=== PATIENT | male | born 1985 | race Caucasian/White ===

== ENCOUNTER 2017-05-08 17:05 | Emergency (ER) | payer MEDICAID ==
[~2017-05-08] VITALS: Ht 170.2 cm; Wt 87.0 kg
[~2017-05-08 17:05] MED LIST: LORA1TAB PO
[2017-05-08 17:29] VITALS: Ht 170.2 cm; Wt 87.0 kg
[2017-05-08 21:33] LABS: BASOPHIL # 0.1 10^3/ul (0.0-0.1); BASOPHILS % 0.6 % (0.0-2.0); EOSINOPHILS # 0.4 10^3/ul (0.0-0.5); EOSINOPHILS % 4.2 % (0.0-7.0); HEMATOCRIT 47.8 % (42.0-52.0); HEMOGLOBIN 16.5 g/dl (14.0-18.0); LYMPHOCYTES # 3.5 10^3/ul (0.8-2.9); LYMPHOCYTES % 36.1 % (15.0-51.0); MEAN CORPUSCULAR HEMOGLOBIN 30.9 pg (29.0-33.0); MEAN CORPUSCULAR HGB CONC 34.5 g/dl (32.0-37.0); MEAN CORPUSCULAR VOLUME 89.5 fl (82.0-101.0); MEAN PLATELET VOLUME 10.3 fl (7.4-10.4); MONOCYTE # 0.7 10^3/ul (0.3-0.9); MONOCYTES % 7.7 % (0.0-11.0); NEUTROPHIL # 4.9 10^3/ul (1.6-7.5); PLATELET COUNT 298 10^3/UL (140-415); RED BLOOD COUNT 5.34 10^6/ul (4.70-6.10); RED CELL DISTRIBUTION WIDTH 12.8 % (11.5-14.5); WHITE BLOOD COUNT 9.7 10^3/ul (4.8-10.8)
[2017-05-08 21:49] LABS: INR 1.05; PARTIAL THROMBOPLASTIN TIME 27.2 Sec (25.0-35.0); PROTIME 13.7 Sec (12.2-14.2); PT RATIO 1.1
[2017-05-08 21:51] LABS: ANION GAP 13 (8-16); BLOOD UREA NITROGEN 19 mg/dl (7-20); CARBON DIOXIDE 29 mmol/L (21-31); CHLORIDE 106 mmol/L (97-110); CREATININE 0.97 mg/dl (0.61-1.24); GLUCOSE 93 mg/dl (70-220); POTASSIUM 4.7 mmol/L (3.5-5.1); SODIUM 143 mmol/L (135-144)
--- NOTE | 2017-05-08 21:57 | ERA ---
ER Documentation Chief Complaint Date/Time DATE: 05/08/17 TIME: 21:48 Chief Complaint HEART PALPATIONS X 1 MONTH, +MARTINEZ HPI 32-year-old male presents with a chief complaints of chest pain and heart palpitations 1-2 months. Previous records previous records show that patient has presented here before for similar symptoms with a trigger of friend recently dying and diagnosed with anxiety. Describes mild shortness of breath. Denies presyncopal/syncopal episode, dizziness, family history of cardiac disease, altered mental status, recent life stressors in the past month. Patient has seek medical care of multiple emergency departments without diagnosis. Patient has not presented to PCP. Patient also describes intermittent headache that is bilateral and tight/squeezing. Patient currently does not have a headache. Has not taken any medications for the headache. Patient has no other complaints and describes no other associated manifestations. Nursing notes and previous documents have been reviewed and are largely consistent with history given. ROS All systems reviewed and are negative except as per history of present illness. Medications Home Meds Active Scripts Lorazepam* (Lorazepam*) 1 Mg Tablet, 1 MG PO Q8, #10 TAB Prov:RAYMUNDO ROBBINS PA-C 04/10/17 Allergies Allergies: Coded Allergies: No Known Allergy (Unverified , 05/08/17) PMhx/Soc History of Surgery: Yes (R Shoulder Surg) Anesthesia Reaction: No Hx Neurological Disorder: No Hx Respiratory Disorders: No Hx Cardiac Disorders: No Hx Psychiatric Problems: No Hx Miscellaneous Medical Probl: Yes (Peptic Dse) Hx Alcohol Use: No Hx Substance Use: Yes (smokes weed) Hx Tobacco Use: Yes (2 packs/day) Smoking Status: Heavy tobacco smoker Physical Exam Vitals Vital Signs Date Time Temp Pulse Resp B/P Pulse Ox O2 Delivery O2 Flow Rate FiO2 05/08/17 21:10 63 18 116/76 99 Room Air 05/08/17 17:29 97.1 65 20 134/90 99 Physical Exam Const: Well-appearing. No acute distress. Head: Normocephalic, Atraumatic. Eyes: Non-injected; No discharge. EOMI and FREDO bilaterally. No nystagmus. Ears: Normal External Ears, EACs clear, TM normal bilaterally without erythema. Nose: Normal external nose; no discharge, or sinus tenderness. Oral: No oral edema visualized. Mucous membranes moist and pink. Neck: No cervical lymphadenopathy, or masses palpated. Supple ~ No meningismus. Pulm: Good air movement in upper and lower respiratory tracts. Clear to auscultation bilaterally. No dyspnea or stridor. Cardio: Regular rate and rhythm; No murmurs, gallops or rubs auscultated. Radial pulses 2+ bilaterally. No cyanosis noted. Capillary refill less than 2 seconds. Abd: Normal bowel sounds. Soft, non tender, non distended. MS: Normal motor strength, normal tone with gross examination. Skin: No petechiae or rashes. Good turgor. Back: No midline, flank or CVA tenderness. Ext: No edema. Normal movement of all extremities grossly observed. Neur: Neurovascularly intact bilaterally. Psych: Normal Mood and Affect. Result Diagram: 05/08/17211605/08/172116 Results 24 hrs Laboratory Tests Test 05/08/17 21:17 White Blood Count 9.710^3/ul Red Blood Count 5.3410^6/ul Hemoglobin 16.5g/dl Hematocrit 47.8% Mean Corpuscular Volume 89.5fl Mean Corpuscular Hemoglobin 30.9pg Mean Corpuscular Hemoglobin Concent 34.5g/dl Red Cell Distribution Width 12.8% Platelet Count 92488^3/UL Mean Platelet Volume 10.3fl Neutrophils % 51.0% Lymphocytes % 36.1% Monocytes % 7.7% Eosinophils % 4.2% Basophils % 0.6% Nucleated Red Blood Cells % 0.0/100WBC Neutrophils # 4.910^3/ul Lymphocytes # 3.510^3/ul Monocytes # 0.710^3/ul Eosinophils # 0.410^3/ul Basophils # 0.110^3/ul Nucleated Red Blood Cells # 0.010^3/ul Prothrombin Time 13.7Sec Prothrombin Time Ratio 1.1 INR International Normalized Ratio 1.05 Activated Partial Thromboplast Time 27.2Sec Sodium Level 143mmol/L Potassium Level 4.7mmol/L Chloride Level 106mmol/L Carbon Dioxide Level 29mmol/L Anion Gap 13 Blood Urea Nitrogen 19mg/dl Creatinine 0.97mg/dl Glucose Level 93mg/dl Calcium Level 10.0mg/dl Troponin I < 0.012ng/ml B-Type Natriuretic Peptide 18PG/ML Procedures/MDM Patient presents with a chief complaint of atypical chest pain 1-2 months and intermittent headache. No current headache. I have no suspicion for intracranial pathology including bleed, meningitis, or other life-threatening illness. EKG was obtained read by me and given the following impression: Sinus bradycardia, normal axis, no ST elevation or depression, incomplete bundle branch block, and good baseline. I reviewed the EKG with my attending who agrees with the aforementioned impression. Labs were WNL. I have little suspicion for airway endangerment, pneumonia, pulmonary embolism, ACS, dissection, or other acute cardiopulmonary pathologies. Referral to creative coordinator has been given due to recurrent episodes. Have also given the patient a list of clinics for adequate follow-up as he has not seen his PCP. Most likely diagnosis is chest pain of unknown etiology. Reviewed the case with my attending who agrees with the assessment and plan. I have spoke with the patient regarding their condition and future management. They have verbally responded that they understand their status and treatment plan. The patients vitals are stable, and their current condition is appropriate for discharge. The patient will be given discharge instructions with return precautions. Departure Diagnosis: Primary Impression: Palpitations Condition: Stable Patient Instructions: Chest Pain, Uncertain Cause Referrals: ARNULFO MARION,LENO MERINO MD,MADISON WOODWARD,SUHAS MACE,JOHNNY MOSELEY,ROLF BULLOCK,AUSTIN BRIAN,ASHLY KAISER,JEMAL BROWNE MD,MARYCHUY SALGADO,DOROTHY Duran MD FORMERLY [facility] YOU HAVE RECEIVED A MEDICAL SCREENING EXAM AND THE RESULTS INDICATE THAT YOU DO NOT HAVE A CONDITION THAT REQUIRES URGENT TREATMENT IN THE EMERGENCY DEPARTMENT. FURTHER EVALUATION AND TREATMENT OF YOUR CONDITION CAN WAIT UNTIL YOU ARE SEEN IN YOUR DOCTORS OFFICE WITHIN THE NEXT 1-2 DAYS. IT IS YOUR RESPONSIBILITY TO MAKE AN APPOINTMENT FOR FOLOW-UP CARE. IF YOU HAVE A PRIMARY DOCTOR --you should call your primary doctor and schedule an appointment IF YOU DO NOT HAVE A PRIMARY DOCTOR YOU CAN CALL OUR PHYSICIAN REFERRAL HOTLINE AT IF YOU CAN NOT AFFORD TO SEE A PHYSICIAN YOU CAN CHOSE FROM THE FOLLOWING [facility] [address] [facility]. [facility] [address] [facility]. [facility] [address] [facility]. [facility] [address] [facility]. [facility] [address] [facility]. [facility]. [address] [facility] ([place]) Usted se martinez hecho un examen mdico de control que le indica que no est en annelise condicin que requiera tratamiento urgente en el Departamento de Emergencia. Un estudio ms profundo y el tratamiento de frazier condicin pueden esperar sin ningn riesgo hasta que usted sea atendida/o en el consultorio de frazier mdico o annelise cl rosamaria. Es responsabilidad suya arreglar annelise pancho para el seguimiento del paco. MANEJO DE CONDICIONES NO URGENTES EN EL FUTURO 1) Si usted tiene un mdico de atencin primaria: Usted debera llamar a frazier mdico de atencin primaria antes de venir al departamento de emergencia. Despus de las horas de consultorio, frazier doctor o frazier asociado/a est disponible por telfono. El mdico o enfermero de alex en el servicio telefnico puede asesorarle por juan manuel medio para atender el problema, o paco contrario se puede programar annelise pancho. 2) Si usted no tiene un mdico de atencin primaria: Llame al mdico o clnica de referencia que aparece abajo danielle las horas de consultorio para hacer annelise pancho para que le vean. CLINICAS: [facility] [phone] [facility]., [facility] [phone] [address] [facility]. [facility] [phone] [address] [facility] [phone] [address] [facility] [phone] [facility] [phone] [address] Additional Instructions: Follow up with your PCP within the next 1-3 days for a more thorough evaluation and a possible referral to a specialist. Return the the emergency department immediately if symptoms worsen or change. LYA BAIN PA-C May 08, 2017 21:57
[2017-05-08 22:04] LABS: B-TYPE NATRIURETIC PEPTIDE 18 PG/ML (0-125)
[2017-05-08 22:18] LABS: TROPONIN-I < 0.012 ng/ml (0.00-0.12)
[2017-05-08 22:47] VITALS: BP 118/72; PULSE 61; RESP 16; TEMP 98.6
== END 2017-05-08 22:48 | disposition home or self-care (01) ==
LOC: FTE 17:05
DX: R00.2 Palpitations (principal); F17.210 Nicotine dependence, cigarettes, uncomplicated; R07.9 Chest pain, unspecified
CPT/HCPCS: 36415; 80048; 83880; 84484; 85025; 85610; 85730; 93005